=== PATIENT | male | born 1935 | race Caucasian/White ===

== ENCOUNTER → 2017-01-09 | Day surgery (SDC) | payer MEDICARE, BC ==
[~2017-01-09] MED LIST: AMIODARONE PO; ANDROGEL150 GM TD; ASPIRIN PO; ASTEPRO137 MCG/0. NS; ASTEPRO205.5 MCG/ NS; ASTHMACORT; AZOR 5-20 MG T1 EACH PO; BAYER ASPIRIN325 M1 PO; DEPO-TESTOT200 MG/ML; DEPO-TESTOTERO100 MG IM; FENTANYL; FISH OIL 1,0001 CAP PO; FLOMAX0.4 MG PO; FLONASE16 GM; HCTZ PO; HYDROCODON-ACE1 EAC5 PO; IBUPROFEN PO; IBUPROFEN800 MG PO; LISINOPRIL10 MG PO; METOPROLOL SUCC50 MG PO; MULTI-VITAMIN1 EAC1 PO; MULTI-VITAMIN1 TAB PO; NEURONTIN PO; NEURONTIN300 MG PO; NEURONTIN600 MG PO; NEXIUM PO; NORCO 10/325 TA1 TAB PO; NORVASC PO; OMEPRAZOLE40 MG PO; OYSTER CALCIUM500 MG PO; PERCOCET 10/3251 TAB PO; RESTASIS32 EA OU; SPIRONOLAC1 TAB 25/2 PO; SYMBICORT 16010.2 GM IH; SYMBICORT INH; SYNTHROID PO; SYNTHROID112 MCG PO; [UNRECOGNIZED DRUG - OTHER]
--- NOTE | ~2017-01-09 | OR ---
Unit #: [id number] #: [id number] Patient: DEBORAH SUÁREZ [id number] [address] [address] [id number] O MR#: [id number] NAME: DEBORAH SUÁREZ. ROOM: Date of Procedure: 01/09/2017 Admission Date: 01/09/2017 Surgeon: Maximino Triana M.D. : 1935 Attending Physician: Maximino Triana M.D. Referring Physician: Maximino Triana M.D. Primary Care Physician: Daron Mayes M.D. OPERATIVE REPORT JOB NOTE: CC: [facility] PREOPERATIVE DIAGNOSES 1. Back pain. 2. Radiculopathy. 3. Degenerative disk disease. 4. Postlumbar fusion. POSTOPERATIVE DIAGNOSES 1. Back pain. 2. Radiculopathy. 3. Degenerative disk disease. 4. Postlumbar fusion. PROCEDURE PERFORMED Lumbar epidural steroid injection with intravenous sedation and fluoroscopic guidance for needle localization. 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 He was treated medically with p.r.n. epidural steroid injections. He also has an intrathecal pump. He has done very well with this. Last injection for his lower lumbar issues were done in 06/2015. The pain has become quite significant over the last few weeks. Based on history, pathology, symptomatology, and response to treatment, we are going to proceed with a repeat epidural steroid injection today. DESCRIPTION OF PROCEDURE The patient was placed in a seated position. Standard monitors were applied. 2 mg of Versed were given for sedation and anxiolysis, which were adequate. Vital signs remained stable. Sterile prep and drape then of the lumbar area was performed. The skin then at the L3-L4 level was localized with 1% lidocaine. An 18-gauge Infogami needle was then advanced via loss of resistance technique and fluoroscopic guidance in toward the epidural space. After confirming proper positioning with fluoroscopy and radiographic contrast, 80 mg Depo-Medrol and 4 mL of 0.125% bupivacaine were deposited. The patient tolerated the procedure otherwise well and was discharged to the recovery room in stable condition. Unit #: [id number] #: [id number] Patient: DEBORAH SUÁREZ Dictated by... Ramon Humphrey/michael TD: 01/10/2017 02:26 JOB #: [id number] OPERATIVE REPORT Page 1 of 1 X Maximino Triana MD X PROCEDURE OPERATIVE NOTE
== END | disposition home or self-care (01) ==
LOC: CCSC 08:34
DX: M51.16 Intervertebral disc disorders with radiculopathy, lumbar region (principal); I10 Essential (primary) hypertension; E03.9 Hypothyroidism, unspecified; I25.2 Old myocardial infarction; K21.9 Gastro-esophageal reflux disease without esophagitis; F41.9 Anxiety disorder, unspecified; Z98.1 Arthrodesis status
CPT/HCPCS: J1040; J2250

== ENCOUNTER → 2017-02-04 | Day surgery (SDC) | payer MEDICARE, BC ==
--- NOTE | ~2017-02-04 | OR ---
Unit #: [id number] #: [id number] Patient: DEBORAH SUÁREZ [id number] [address] [address] [id number] O MR#: [id number] NAME: DEBORAH SUÁREZ ROOM: Date of Procedure: 02/04/2017 Admission Date: 02/04/2017 Surgeon: Maximino Triana M.D. : 1935 Attending Physician: Maximino Triana M.D. Primary Care Physician: Daron Mayes M.D. OPERATIVE REPORT JOB NOTE: CC: [facility] PREOPERATIVE DIAGNOSES Back pain, radiculopathy, degenerative lumbar disk disease, postlumbar fusion. POSTOPERATIVE DIAGNOSES Back pain, radiculopathy, degenerative lumbar disk disease, postlumbar fusion. PROCEDURE PERFORMED Lumbar epidural steroid injection with intravenous sedation and fluoroscopic guidance for needle localization. INDICATIONS FOR PROCEDURE The patient is a 81-year-old male with return of back and right greater than left lower extremity pain due to adjacent level disease. He is status post L4 through S1 fusion. Epidural steroid injection done 4 weeks ago resulted in moderately good settling of his pain. By then, he usually does with the single injection. Typically, the patient does well with 2 or 3 injections. We are going to proceed with a second injection today. If he continues to do well, we will hold on any further treatment. DESCRIPTION OF PROCEDURE The patient was placed in a seated position. Standard monitors were applied. 2 mg of Versed were given for sedation and anxiolysis, which were adequate. Vital signs remained stable. Sterile prep and drape then of lumbar area was performed. The skin then at the L3-L4 level was localized with 1% lidocaine. An 18-gauge Munaxtead needle was then advanced via loss of resistance technique and fluoroscopic guidance in toward the epidural space. After confirming proper positioning with fluoroscopy and radiographic contrast, 80 mg Depo-Medrol and 4 mL of 0.125% bupivacaine were deposited. The patient tolerated the procedure otherwise well and was discharged to the recovery room in stable condition. Dictated by... Maximino Triana M.D. LHP/modl Unit #: [id number] #: [id number] Patient: DEBORAH SUÁREZ TD: 02/04/2017 23:57 JOB #: [id number] OPERATIVE REPORT Page 1 of 1 X Maximino Triana MD X PROCEDURE OPERATIVE NOTE
== END | disposition home or self-care (01) ==
LOC: CCSC 09:16
DX: M51.16 Intervertebral disc disorders with radiculopathy, lumbar region (principal); Z98.1 Arthrodesis status; J44.9 Chronic obstructive pulmonary disease, unspecified; K21.9 Gastro-esophageal reflux disease without esophagitis; I10 Essential (primary) hypertension
CPT/HCPCS: J1040; J2250